=== PATIENT | female | born 1960 | race Caucasian/White ===

== ENCOUNTER 2017-01-25 08:10 | Day surgery (SDC) | payer BC ==
[2017-01-25] MEDS ORDERED: NS 500 ML IV 500 ML IV ONE (09:10)
[2017-01-25] MEDS ORDERED: TETRACAINE 0.5% OPHTH 1 DOSE AFFEYE ONE ×4 (09:13→11:38)
[2017-01-25] MEDS ORDERED: VIGAMOX 0.5% OPHTH 1 DOSE AFFEYE ONE ×6 (09:15→11:48)
[2017-01-25] MEDS ORDERED: PROLENSA OPHTH 1 DOSE AFFEYE ONE (09:27)
[2017-01-25] MEDS ORDERED: ALPHAGAN-P OPHTH 1 DOSE AFFEYE ONE (09:30)
[2017-01-25] MEDS ORDERED: CYCLOGYL 1% OPHTH 1 DOSE OP ONE ×3 (09:31→09:35)
[2017-01-25] MEDS ORDERED: MYDRIACIL OPHTH 1 DOSE AFFEYE ONE ×3 (09:31→09:35)
[2017-01-25] MEDS ORDERED: AK-DILATE 2.5% OPHTH 1 DOSE OP ONE ×3 (09:31→09:35)
[2017-01-25] MEDS ORDERED: DIPRIVAN VIAL ONE (09:38)
[2017-01-25] MEDS ORDERED: BETADINE OPHTH SOLN 5% EACHEYE ONE (11:22)
[2017-01-25] MEDS ORDERED: [UNRECOGNIZED DRUG - SUPPLY] IO ONE ×2 (11:32→11:38)
[2017-01-25] MEDS ORDERED: DUOVISC IO ONE ×2 (11:32→11:38)
[2017-01-25] MEDS ORDERED: XYLOCAINE-MPF 1% IJ ONE ×2 (11:32→11:38)
[2017-01-25] MEDS ORDERED: BSS OPHTH (PLAIN) 500 ML with VANCOMYCIN HCL 500 MG VIAL 25 MG, ADRENALINE CHL INJ 1 MG IR ONE ×6 (11:33)
[2017-01-25 12:08] VITALS: BP 151/87
== END 2017-01-25 12:11 | disposition home or self-care (01) ==
LOC: SURG1 08:10
PROVIDERS: ATTEND Ophthalmology
PROC: 08DJ3ZZ Extraction of Right Lens, Percutaneous Approach (ICD-10-PCS; principal; 2017-01-25 14:15)
PROC: 08RJ3JZ Replacement of Right Lens with Synthetic Substitute, Percutaneous Approach (ICD-10-PCS; principal; 2017-01-25 14:15)
DX: H25.11 Age-related nuclear cataract, right eye (principal); H25.011 Cortical age-related cataract, right eye; H52.221 Regular astigmatism, right eye
CPT/HCPCS: A9270; A4217; J0170; J3370; J3490

== ENCOUNTER 2017-02-08 10:18 | Day surgery (SDC) | payer BC ==
[2017-02-08] MEDS ORDERED: DIPRIVAN VIAL ONE (10:20)
[2017-02-08] MEDS ORDERED: TETRACAINE 0.5% OPHTH 1 DOSE AFFEYE ONE ×2 (10:45→13:38)
[2017-02-08] MEDS ORDERED: VIGAMOX 0.5% OPHTH 1 DOSE AFFEYE ONE ×5 (10:50→14:03)
[2017-02-08] MEDS ORDERED: PROLENSA OPHTH 1 DOSE AFFEYE ONE (11:01)
[2017-02-08] MEDS ORDERED: ALPHAGAN-P OPHTH 1 DOSE AFFEYE ONE (11:02)
[2017-02-08] MEDS ORDERED: CYCLOGYL 1% OPHTH 1 DOSE OP ONE ×3 (11:03→11:05)
[2017-02-08] MEDS ORDERED: AK-DILATE 2.5% OPHTH 1 DOSE OP ONE ×3 (11:03→11:05)
[2017-02-08] MEDS ORDERED: MYDRIACIL OPHTH 1 DOSE AFFEYE ONE ×3 (11:03→11:05)
[2017-02-08] MEDS ORDERED: NS 500 ML IV 500 ML IV ONE (11:26)
[2017-02-08] MEDS ORDERED: BETADINE OPHTH SOLN 5% EACHEYE ONE (13:38)
[2017-02-08] MEDS ORDERED: XYLOCAINE-MPF 1% IJ ONE ×2 (13:45→13:53)
[2017-02-08] MEDS ORDERED: DUOVISC IO ONE ×2 (13:45→13:53)
[2017-02-08] MEDS ORDERED: ADRENALINE CHL INJ IJ ONE ×2 (13:45→13:53)
[2017-02-08] MEDS ORDERED: BSS OPHTH (PLAIN) 500 ML with VANCOMYCIN HCL 500 MG VIAL 25 MG, ADRENALINE CHL INJ 1 MG IR ONE ×6 (13:46)
[2017-02-08 14:22] VITALS: BP 113/78
== END 2017-02-08 14:22 | disposition home or self-care (01) ==
LOC: SURG1 10:18
PROVIDERS: ATTEND Ophthalmology
PROC: 08DK3ZZ Extraction of Left Lens, Percutaneous Approach (ICD-10-PCS; principal; 2017-02-08 18:45)
PROC: 08RK3JZ Replacement of Left Lens with Synthetic Substitute, Percutaneous Approach (ICD-10-PCS; principal; 2017-02-08 18:45)
DX: H25.12 Age-related nuclear cataract, left eye (principal); H25.012 Cortical age-related cataract, left eye; H25.042 Posterior subcapsular polar age-related cataract, left eye; H52.222 Regular astigmatism, left eye
CPT/HCPCS: A9270; A4217; J0170; J3370; J3490